=== PATIENT | male | born 1990 | race Caucasian/White ===

== ENCOUNTER 2024-02-16 11:46 | Emergency (ER) | payer OTHER ==
[~2024-02-16] VITALS: Ht 177.8 cm; Wt 65.8 kg
[~2024-02-16 11:46] MED LIST: FAMO20 PO; GABA800 PO; IBUP800 PO; LEVE500 PO; METCAR500 PO; Mobic15 MG PO; Neurontin 300300 MG PO; Percocet 5-3251 EACH PO; Peridex480 ML SS; TIZANIDINE HCL2 MG PO; Veetids 500500 MG PO
[2024-02-16 12:01] VITALS: BP 119/70
[2024-02-16] MEDS ORDERED: Percocet 5-3251 EACH PO (13:52)
[2024-02-16] MEDS ORDERED: AMOCLA875 PO (13:52)
== END 2024-02-16 13:58 | disposition home or self-care (01) ==
LOC: ER 11:46
DX: S99.921A Unspecified injury of right foot, initial encounter (principal); K04.7 Periapical abscess without sinus; K02.9 Dental caries, unspecified; W01.0XXA Fall on same level from slipping, tripping and stumbling without subsequent striking against object, initial encounter; Z87.39 Personal history of other diseases of the musculoskeletal system and connective tissue; Z87.891 Personal history of nicotine dependence; Z79.899 Other long term (current) drug therapy
CPT/HCPCS: 73630; 99283-25